=== PATIENT | male | born 1985 | race Caucasian/White ===

== ENCOUNTER 2017-05-04 01:27 | Emergency (ER) | payer OTHER ==
[~2017-05-04] VITALS: Ht 177.8 cm; Wt 127.0 kg
[~2017-05-04 01:27] MED LIST: INTESTINEX1 CAP PO
[2017-05-04] MEDS ORDERED: KETO10TA2 PO (04:02)
[2017-05-04] MEDS ORDERED: CEFUROXIME500 MG PO (04:02)
== END 2017-05-04 04:45 | disposition home or self-care (01) ==
LOC: ER 01:27
DX: H66.91 Otitis media, unspecified, right ear (principal)

== ENCOUNTER 2019-01-14 11:48 | Emergency (ER) | payer OTHER ==
[~2019-01-14] VITALS: Ht 177.8 cm; Wt 140.6 kg
[~2019-01-14 11:48] MED LIST changes: +CEFUROXIME500 MG PO; +KETO10TA2 PO
[2019-01-14] MEDS ORDERED: CLARITIN10 M1 PO (13:21)
[2019-01-14] MEDS ORDERED: AMOX-CLAV 875-1 EACH PO (13:21)
[2019-01-14] MEDS ORDERED: TUSNEL LIQUID178 ML PO (13:21)
== END 2019-01-14 13:32 | disposition home or self-care (01) ==
LOC: ER 11:48
DX: J35.01 Chronic tonsillitis (principal)

== ENCOUNTER 2019-05-26 12:39 | Emergency (ER) | payer OTHER ==
[~2019-05-26] VITALS: Ht 177.8 cm; Wt 142.9 kg
[~2019-05-26 12:39] MED LIST changes: +AMOX-CLAV 875-1 EACH PO; +CLARITIN10 M1 PO; +TUSNEL LIQUID178 ML PO
== END 2019-05-26 17:49 | disposition home or self-care (01) ==
LOC: ER 12:39
DX: G93.3 Postviral and related fatigue syndromes (principal)